=== PATIENT | female | born 1955 | race Caucasian/White ===

== ENCOUNTER → 2017-01-04 | Outpatient (CLI) | payer BC ==
[~2017-01-04] MED LIST: ASPIRIN 32325 MG/TAB PO; CLOTRIM ANTIFUNGAL1%; ELESTRIN0.06% TP; FLONASE NASAL S16 GM NS; LIPITOR 10MG10 MG PO; PATADAY 2.5 ML2.5 ML OU; PRIL40 PO; TOPROL XL 50MG50 MG PO
== END ==
LOC: MC.RAD 09:00
DX: Z12.31 Encounter for screening mammogram for malignant neoplasm of breast (principal)

== ENCOUNTER → 2017-07-03 | Outpatient (CLI) | payer BC | LOC: SUN.DIA 08:58 | DX: R73.03 Prediabetes (principal); E78.5 Hyperlipidemia, unspecified; I10 Essential (primary) hypertension; Z68.28 Body mass index [BMI] 28.0-28.9, adult; Z71.3 Dietary counseling and surveillance | CPT/HCPCS: G0108 ==

== ENCOUNTER → 2017-07-18 | Outpatient (CLI) | payer BC | LOC: SUN.DIA 09:24 | DX: R73.03 Prediabetes (principal); E78.5 Hyperlipidemia, unspecified; I10 Essential (primary) hypertension; Z68.27 Body mass index [BMI] 27.0-27.9, adult; Z71.3 Dietary counseling and surveillance | CPT/HCPCS: G0108 ==

== ENCOUNTER → 2017-10-17 | Outpatient (CLI) | payer BC | LOC: SUN.DIA 08:37 | DX: R73.03 Prediabetes (principal); E78.5 Hyperlipidemia, unspecified; I10 Essential (primary) hypertension; Z68.27 Body mass index [BMI] 27.0-27.9, adult; Z71.3 Dietary counseling and surveillance | CPT/HCPCS: G0108 ==

== ENCOUNTER → 2018-01-22 | Outpatient (CLI) | payer BC | LOC: MC.RAD 09:37 | DX: Z12.31 Encounter for screening mammogram for malignant neoplasm of breast (principal) ==

== ENCOUNTER → 2019-02-10 | Outpatient (CLI) | payer MEDICARE, BC | LOC: MC.RAD 10:19 | DX: Z12.31 Encounter for screening mammogram for malignant neoplasm of breast (principal) ==

== ENCOUNTER → 2020-04-06 | Outpatient (CLI) | payer MEDICARE, BC | LOC: MC.RAD 11:22 | DX: Z12.31 Encounter for screening mammogram for malignant neoplasm of breast (principal); N63.20 Unspecified lump in the left breast, unspecified quadrant ==

== ENCOUNTER → 2020-04-14 | Outpatient (CLI) | payer MEDICARE, BC | LOC: MC.RAD 09:57 | DX: N60.12 Diffuse cystic mastopathy of left breast (principal) ==

== ENCOUNTER → 2021-10-25 | Outpatient (CLI) | payer MEDICARE, BC | LOC: MC.RAD 15:29 | DX: Z12.31 Encounter for screening mammogram for malignant neoplasm of breast (principal) ==